=== PATIENT | male | born 2000 | race Caucasian/White ===

== ENCOUNTER 2019-10-18 23:02 | Emergency (ER) | payer BC, SELFPAY ==
[2019-10-18 23:08] VITALS: BP 124/74; PULSE 80; RESP 17; TEMP 36.8; O2SAT 99; BMI 22.9
--- NOTE | 2019-10-18 23:10 | XR_ITS ---
WS: [id number] XR ribs RT 2V* [id number] REASON FOR EXAM: trauma FINDINGS: The right ribs are intact there is no definite fractures or dislocations. No pneumothorax o r pleural reaction. XR/XR ribs RT 2V* [id number] IMPRESSION: Negative right rib study.
--- NOTE | 2019-10-18 23:10 | XR_ITS ---
WS: [id number] XR chest 2V* [id number] REASON FOR EXAM: trauma FINDINGS: The heart and mediastinal interfaces normal. The lung jaquez are well aerated. No pneumonia, pleural effusion, pulmonary edema, no lung contusions . The hilum and apices normal. No osseous abnormalities. XR/XR chest 2V* [id number] IMPRESSION: Negative chest for acute findings.
--- NOTE | 2019-10-18 23:11 | ED_ITS ---
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 but he got stomped on by the bull on his right posterior upper back area and has pain in that area hurts to take a deep breath not short of breath denies any other injuries MD complaint: bull writing injury Onset (ago): hour(s) Location: back Radiation: non-radiation Severity: moderate Severity scale (1-10): 5 Quality: aching Pain Consistency: constant Relieving factors: immobilization Exacerbating factors: movement Associated symptoms: Reports no associated symptoms; Deny chest pain, dyspnea, headache(s), nausea, rash or vomiting Review of Systems Const: Denies: fever, chills or body aches Eyes: Denies: change in vision or blurry vision ENMT: Denies: throat pain or nasal congestion Card: Denies: chest pain or shortness of breath on exertion Resp: Denies: shortness of breath, productive cough or non-productive cough GI: Denies: abdominal pain, nausea or vomiting : Denies: difficulty urinating Musc: Reports: other (Has pain to the upper right back area for a ball stomped on him this tonight patient was wearing protective bull riding vest); Denies: extremity pain Skin/Breast: Denies: rash Neuro: Denies: headache Psych: Denies: anxiety or depression Carlos/Lymph: Denies: easy bruising PFSH ED PFSH: Social History Smoking and tobacco status: current every day smoker Physical Exam Const: COMMON NORMALS: no apparent distress, average body habitus and oriented x3 HENMT: COMMON NORMALS: normocephalic HEAD & SCALP: normal to inspection and normocephalic FACE & SINUS: normal facial exam Eye: COMMON NORMALS: conjunctivae normal GENERAL EYE: normal appearance of both eyes CONJUNCTIVA: Yes conjunctivae normal Neck/C-Spine: COMMON NORMALS: no JVD Chest: COMMONS NORMALS: inspection of chest normal Resp: COMMON NORMALS: normal respiratory effort and clear to auscultation bilaterally AUSCULTATION: clear to auscultation bilaterally Cardio: COMMON NORMALS: no JVD, regular rate and regular rhythm RATE: regular rate RHYTHM: regular rhythm GI: COMMON NORMALS: normal to inspection, nondistended, normoactive bowel sounds Back/Pelvis: OTHER: Has bruising to his upper back with 3 distinct lines probably left over from the vest is tender to the touch is setting immobile is breathing normally Extremity: COMMON NORMALS: normal to inspection and full ROM Neuro: COMMON NORMALS: oriented x3 Coding Level of Care Code ED Connie Cleaner for Aiyana Martini
[2019-10-18 23:40] VITALS: RESP 18
[2019-10-18] MEDS: morphine 4 mg/mL SDV 1 mL IM (23:40)
[2019-10-19 00:15] VITALS: BP 112/64; PULSE 60; RESP 18; TEMP 36.8; O2SAT 99
== END 2019-10-19 00:15 | disposition home or self-care (01) ==
PROVIDERS: Emergency Provider Nurse Practitioner Family; PCP Family Medicine
DX: S29.9XXA Unspecified injury of thorax, initial encounter (principal); W55.29XA Other contact with cow, initial encounter; F17.210 Nicotine dependence, cigarettes, uncomplicated
CPT/HCPCS: 12345; 71046; 71100; 96372; 99281; 99282; 99283; J2270

== ENCOUNTER → 2021-11-28 11:39 | Outpatient (BNVA) | payer BC, SELFPAY | PROVIDERS: PCP Family Medicine; Visit Provider Family Medicine | DX: R31.9 Hematuria, unspecified (principal) | CPT/HCPCS: 81000; 87086 ==

== ENCOUNTER → 2024-08-12 11:31 | Outpatient (BNVA) | payer SELFPAY | PROVIDERS: PCP Family Medicine; Visit Provider Clinical Nurse Specialist Adult Health | DX: R10.9 Unspecified abdominal pain (principal) | CPT/HCPCS: 80053; 85025; 85651; 86140 ==

== ENCOUNTER 2024-08-15 10:57 | Outpatient (CLI) | payer SELFPAY ==
--- NOTE | 2024-08-15 11:15 | US_ITS ---
WS: [id number] Complete ABDOMINAL ULTRASOUND HISTORY: R10.11 - Right upper quadrant pain COMPARISON: None available. Liver: 14.3 cm in length. Normal size liver and echogenicity. No bile duct dilatation or mass. Portal Vein: Normal hepatopetal flow with monophasic waveform. Gallbladder: Normally distended gallbladder with no stones or wall thickening. CBD: 0.3 cm Pancreas: Normal size and echogenicity. Right kidney: 9.1 cm x 4.7 x 3.8 cm. Cortex:1.0 cm. Normal size and echogenicity. No hydronephrosis or mass. Left kidney: 9.9 cm x 4.0 cm x 4.0 cm. Cortex: 1.1 cm. Normal size and echogenicity. No hydronephrosis or mass. Spleen: 12.8 cm. Normal size and echogenicity. Aorta and IVC: Unremarkable abdominal aorta and IVC. US/US abdomen complete* [id number] Impression: Normal complete abdomen ultrasound.
== END 2024-08-15 10:58 | disposition home or self-care (01) ==
LOC: RAD 10:58
PROVIDERS: PCP Family Medicine; Visit Provider Clinical Nurse Specialist Adult Health
DX: R10.11 Right upper quadrant pain (principal)
CPT/HCPCS: 76700